=== PATIENT | female | born 1985 | race Caucasian/White ===

== ENCOUNTER 2021-02-17 20:41 | Emergency (ER) | payer MEDICAID, OTHER ==
[~2021-02-17] VITALS: Ht 172.7 cm; Wt 98.3 kg
--- NOTE | 2021-02-17 20:59 | ED Upper Extremity ---
General Stated Complaint: RT HAND INJ Source: patient Exam Limitations: no limitations History of Present Illness Date Seen by Provider: Feb 17, 2021 Time Seen by Provider: 20:46 Initial Comments 35 yo female visiting the area for deer hunting. She was getting out of the deer stand and tripped and fell landing on right hand and forearm. She states this happened around 1900. She took 2 tylenol for pain. She has tingling in the fingers and hand. Increased pain with palpation over pinky finger and wrist as well as with movement of wrist. She denies any head injury or other injury. She is right hand dominant. Onset: this evening Pain/Injury Location: right forearm, right wrist, right hand, right 5th finger Method of Injury: fell Modifying Factors: Worse With Movement Allergies and Home Medications Allergies Coded Allergies: Penicillins (Verified Allergy, Unknown, 02/17/21) Patient Home Medication List Home Medication List Reviewed: Yes Hydrocodone/Acetaminophen (Hydrocodone-Acetamin 5-325 mg) 1 Each Tablet, 1 TAB PO Q6H PRN for PAIN-SEVERE (8-10) Prescribed by: GENTRY ALLRED on 02/17/212136 Ibuprofen (Ibuprofen) 800 Mg Tablet, 800 MG PO Q8H PRN for PAIN Prescribed by: GENTRY ALLRED on 02/17/212135 Review of Systems Constitutional: No chills, No fever EENTM: no symptoms reported Respiratory: no symptoms reported Cardiovascular: no symptoms reported Gastrointestinal: no symptoms reported Genitourinary: no symptoms reported Musculoskeletal: see HPI Skin: No change in color Psychiatric/Neurological: Tingling (fingers and hand on right side) Past Rlmjgxi-Bxdhni-Sbtnyp Hx Past Medical History Surgeries: Yes Section, Hysterectomy Respiratory: No Cardiac: No Neurological: No RN REVIEW History: Hysterectomy Genitourinary: No Gastrointestinal: No Musculoskeletal: No Endocrine: No Physical Exam Vital Signs Vital Signs - First Documented 02/17/21 20:48 Temp 36.5 Pulse 92 Resp 18 B/P (MAP) 129/99 (109) Pulse Ox 97 O2 Delivery Room Air Capillary Refill : Height, Weight, BMI Height: '" Weight: lbs. oz. 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 Neurovascular and tendon intact pre and post splinting. Given sling to help support the splint. Counseled on care and management of splint. Arm Sling: Purdy Progress/Results/Core Measures Results/Orders My Orders Orders - GENTRY ALLRED MD Ice: Apply To Affected Area (02/17/21 20:51) Elevate Affected Extremity (02/17/21 20:51) Hand 3 View Right (02/17/21 20:51) Forearm 2 View Right (02/17/21 20:51) Rx-Hydrocodone/Apap 5-325 Mg (Rx-Vicodin (02/17/21 21:30) Ed Ortho/Other Supplies Order (02/17/21 21:20) Ortho Glass (02/17/21 21:20) Orthopedic Equiment (02/17/21 21:20) Ibuprofen Tablet (Motrin Tablet) (02/17/21 21:34) Medications Given in ED Current Medications Medications Dose Ordered Sig/Lc Route Start Time Stop Time Status Last Admin Dose Admin Acetaminophen/ Hydrocodone Bitart 1 ea Q6H PRN PO 02/17/21 21:30 02/17/21 21:32 1 EA Vital Signs/I&O 02/17/21 20:48 Temp 36.5 Pulse 92 Resp 18 B/P (MAP) 129/99 (109) Pulse Ox 97 O2 Delivery Room Air Progress Progress Note #1: Progress Note Patient took acetaminophen prior to arrival so will defer medicine here until imaging complete and know more what might be causing her symptoms. Ice and elevate extremity to help with pain. Xrays of hand and forearm. Progress Note #2: Progress Note Xrays show comminuted fracture of the base of the 5th metacarpal with intra- articular extension. Will splint with ulnar gutter and treat pain with opiod. Recommend hand surgeon referral within 3-5 days as this usually requires surgical fixation. Aggressive elevation above heart level and ice application for swelling and pain. Diagnostic Imaging Diagonstic Imaging: Xray Plain Films/CT/US/NM/MRI: hand Comments NAME: MURTAZAJuly MED REC#: [id number] PT STATUS: REG ER : 1985 PHYSICIAN: GENTRY ALLRED MD ADMIT DATE: 02/17/21/ER FS Draft Date of Exam:02/17/21 HAND 3 VIEW RIGHT EXAMINATION: Right hand 3 views. HISTORY: Fall. COMPARISON: None available. FINDINGS: There is a comminuted intra-articular fracture of the base of the left 5th metacarpal. There is overlying soft tissue swelling. Joint spaces are normal. IMPRESSION: Comminuted intra-articular fracture of the base of the left 5th metacarpal. Dictated on workstation # [id number] Dict: 02/17/212105 Trans: 02/17/212107 PJE [id number] Interpreted by: ELVI VARGHESE MD Electronically signed by: Reviewed: Reviewed by Me Diagonstic Imaging: Xray Plain Films/CT/US/NM/MRI: forearm Comments [facility] [place] NAME: MURTAZAJuly MED REC#: [id number] PT STATUS: REG ER : 1985 PHYSICIAN: GENTRY ALLRED MD ADMIT DATE: 02/17/21/ER FS Draft Date of Exam:02/17/21 FOREARM 2 VIEW RIGHT EXAMINATION: Right forearm 2 views. HISTORY: Pain, fall. COMPARISON: None available. FINDINGS: There is right 5th metacarpal fracture. Radius and ulna are normal without other fracture seen. Alignment is normal. IMPRESSION: No fracture in the radius or ulna. Dictated on workstation # [id number] Dict: 02/17/212106 Trans: 02/17/212108 PJE [id number] Interpreted by: ELVI VARGHESE MD Electronically signed by: Reviewed: Reviewed by Me Departure Impression Primary Impression: Nondisplaced fracture of base of fifth metacarpal bone, right hand, initial encounter for closed fracture Additional Impressions: Right hand pain Contusion of right hand, initial encounter Acute pain of right wrist Right forearm pain Fall Qualified Codes: W19.XXXA - Unspecified fall, initial encounter Disposition: 01 HOME, SELF-CARE Condition: Stable Departure-Patient Inst. Decision time for Depature: 21:35 Referrals: NO,LOCAL PHYSICIAN (PCP/Family) Primary Care Physician Patient Instructions: Wrist Sprain ED, Splint Care ED, Hand Fracture ED, Opioids for Short-Term Treatment of Pain ED Add. Discharge Instructions: Keep splint clean and dry. Elevate above heart level as much as possible in next 2-3 days to help with throbbing pain and swelling. Ice 20-30 minutes every few hours as needed for pain and swelling. Take narcotic pain medicine as needed for severe pain. You will need to follow up with hand surgeon this week, so within 3-5 days. This type of fracture frequently requires surgery to stabilize the broken bone and help with healing. Scripts Ibuprofen (Ibuprofen) 800 Mg Tablet 800 MG PO Q8H PRN for PAIN for 10 Days, #30 TAB 0 Refills Prov: GENTRY ALLRED MD 02/17/21 Hydrocodone/Acetaminophen (Hydrocodone-Acetamin 5-325 mg) 1 Each Tablet 1 TAB PO Q6H PRN for PAIN-SEVERE (8-10) for 5 Days, #20 TAB 0 Refills Prov: GENTRY ALLRED MD 02/17/21 GENTRY ALLRED MD Feb 17, 2021 20:59
--- NOTE | 2021-02-17 21:08 | Diagnostic Imaging Report ---
EXAMINATION: Right hand 3 views. HISTORY: Fall. COMPARISON: None available. FINDINGS: There is a comminuted intra-articular fracture of the base of the left 5th metacarpal. There is overlying soft tissue swelling. Joint spaces are normal. IMPRESSION: Comminuted intra-articular fracture of the base of the left 5th metacarpal. Dictated by: Dictated on workstation # [id number]
--- NOTE | 2021-02-17 21:09 | Diagnostic Imaging Report ---
EXAMINATION: Right forearm 2 views. HISTORY: Pain, fall. COMPARISON: None available. FINDINGS: There is right 5th metacarpal fracture. Radius and ulna are normal without other fracture seen. Alignment is normal. IMPRESSION: No fracture in the radius or ulna. Dictated by: Dictated on workstation # [id number]
[2021-02-17] MEDS ORDERED: IBUPROFEN 800 MG (MOTRIN) TAB PO STA (21:34)
[2021-02-17] MEDS ORDERED: ACHD5005 PO (21:36)
[2021-02-17] MEDS ORDERED: IBUP-1780 PO (21:36)
[2021-02-17 21:49] VITALS: BP 125/81
== END 2021-02-17 21:46 | disposition home or self-care (01) ==
LOC: ER FS 20:45
DX: S62.346A Nondisplaced fracture of base of fifth metacarpal bone, right hand, initial encounter for closed fracture (principal); S60.221A Contusion of right hand, initial encounter; M79.631 Pain in right forearm; E66.9 Obesity, unspecified; W01.0XXA Fall on same level from slipping, tripping and stumbling without subsequent striking against object, initial encounter
CPT/HCPCS: 29125; 73090; 73130; 99284; A4565